=== PATIENT | male | born 1975 ===

== ENCOUNTER 2019-09-27 09:44 | Outpatient (REF) | payer OTHER, SELFPAY ==
[2019-09-27 21:48] LABS: Absolute Basophil Count 0.02 k/cumm (0.0-0.2); Absolute Eosinophil Count 0.22 k/cumm (0.0-0.7); Absolute Lymphocyte Count 2.15 k/cumm (1.2-3.4); Absolute Monocyte Count 0.43 k/cumm (0.11-0.7); Absolute Neutrophil Count 2.55 k/cumm (1.2-6.7); Basophils % 0.4; Eosinophils % 4.1; HCT 42.2 % (40.0-50.0); HGB 14.7 g/dL (13.5-17.5); Mean Corp. HGB Concentration 34.8 g/dL (32.0-36.0); Mean Corpuscular Hemoglobin 31.8 pg (27.0-33.0); Mean Corpuscular Volume 91.3 fL (80-95); Mean Platelet Volume 11.3 fL (8.0-11.0); Neutrophils % 47.5; Platelet Count 285 x1000/uL (130-400); RBC 4.62 m/cumm (4.50-6.00); RBC Distribution Width 12.5 % (11.8-14.1); White Blood Cell Count 5.37 k/cumm (4.4-10.8)
[2019-09-27 22:13] LABS: ALT 25 U/L (16-63); AST 16 U/L (15-37); Albumin 3.9 g/dL (3.4-5.0); Alkaline Phosphatase 64 U/L (46-116); BUN 13 mg/dL (7-18); Bilirubin, Total 0.6 mg/dL (0.2-1.0); CREATININE 0.95 mg/dL (0.70-1.30); Calculated LDL 117 mg/dL (<100); Chloride 104 mmol/L (98-107); Cholesterol 190 mg/dL (<200); Glucose 86 mg/dL (74-106); HDL Cholesterol 65 mg/dL (40-60); Potassium 4.1 mmol/L (3.5-5.1); Sodium 141 mmol/L (136-145); TSH (W/Ref FT4) 1.28 uIU/mL (0.36-3.74); Total Protein 6.5 g/dL (6.4-8.2); Triglyceride 44 mg/dL (<150)
[2019-09-27 22:36] LABS: Vitamin D 25 Total 48.6 ng/ml (30-100)
[2019-10-01 11:20] LABS: Hepatitis C Ab w Rflx HCV PCR Negative (Negative)
== END 2019-09-27 10:04 ==
LOC: NCHCN 09:44
PROVIDERS: PCP Nurse Practitioner Family; Visit Provider Nurse Practitioner Family
DX: Z13.1 Encounter for screening for diabetes mellitus (principal); Z13.220 Encounter for screening for lipoid disorders; R53.83 Other fatigue; Z13.29 Encounter for screening for other suspected endocrine disorder; Z11.59 Encounter for screening for other viral diseases
CPT/HCPCS: 80053; 80061; 82306; 86803; 84443; 85025